=== PATIENT | female | born 1980 | race Caucasian/White ===

== ENCOUNTER 2017-05-16 17:56 | Emergency (ER) | payer SELFPAY ==
[2017-05-16 18:36] VITALS: BP 128/68
--- NOTE | 2017-05-16 18:44 | UC ---
Throat Pain/Nasal Fermin HPI - HPI Summary HPI Summary: SORE THROAT X 1 DAY NO FEVER, + CHILLS, NO NASAL CONGESTION , NO COUGH DID SALT WATER GARGLES ABOUT AN HR AGO WHICH MADE HER THROAT A LOT WORSE FEELS SWOLLEN, PT. HAS ALLERGIES TO IODINE NO SOB , NO COUGH - History of Current Complaint Chief Complaint: UCRespiratory Stated Complaint: SORE THROAT Time Seen by Provider: 05/16/17 18:31 Hx Obtained From: Patient Hx Last Menstrual Period: 05/10/17 Onset/Duration: Gradual Onset, Lasting Days - 1, Still Present Severity: Moderate Cough: None Associated Signs & Symptoms: Negative: Hoarseness, Nasal Discharge, Fever, Rash - Allergies/Home Medications Allergies/Adverse Reactions: Allergies Allergy/AdvReac Type Severity Reaction Status Date / Time Iodine Allergy Rash And Verified 07/17/13 15:54 Itching Shellfish Allergy Allergy Rash And Verified 05/16/17 18:36 Itching Sulfa Drugs Allergy Rash And Verified 07/17/13 15:54 Itching PMH/Surg Hx/FS Hx/Imm Hx Previously Healthy: Yes - Surgical History Surgical History: Yes Surgery Procedure, Year, and Place: c-sect, gallbladder - Family History Known Family History: Negative: Diabetes - Social History Alcohol Use: None Substance Use Type: None Smoking Status (MU): Never Smoked Tobacco Review of Systems Constitutional: Negative Skin: Negative Eyes: Negative ENT: Sore Throat Respiratory: Negative Cardiovascular: Negative Gastrointestinal: Negative Is Patient Immunocompromised?: No All Other Systems Reviewed And Are Negative: Yes Physical Exam Triage Information Reviewed: Yes Appearance: Well-Appearing, Well-Nourished, Pain Distress Vital Signs: Initial Vital Signs Temp 98 F 05/16/17 18:29 Pulse 95 05/16/17 18:29 Resp 18 05/16/17 18:29 BP 128/68 05/16/17 18:29 Pulse Ox 98 05/16/17 18:29 Vital Signs Reviewed: Yes Eye Exam: Normal Eyes: Positive: Conjunctiva Clear ENT: Positive: Normal ENT inspection, Hearing grossly normal, Pharyngeal erythema Neck exam: Normal Neck: Positive: Supple, Nontender, No Lymphadenopathy Respiratory: Positive: Chest non-tender, Lungs clear, Normal breath sounds, No respiratory distress Cardiovascular: Positive: RRR, No Murmur, Pulses Normal Abdominal Exam: Normal Skin Exam: Normal Throat Pain/Nasal Course/Dx - Differential Dx/Diagnosis Provider Diagnoses: PHARYNGITIS Discharge - Discharge Plan Condition: Stable Disposition: HOME Prescriptions: Amoxicillin PO (*) [Amoxicillin 875 MG (*)] 875 mg PO BID #20 tab predniSONE TAB* [Deltasone TAB*] 20 mg PO DAILY #5 tab Patient Education Materials: Pharyngitis (ED) Referrals: Cody Garrido MD [Primary Care Provider] - 5 Days
== END 2017-05-16 18:50 | disposition home or self-care (01) ==
LOC: UCCORT 17:56
DX: J02.9 Acute pharyngitis, unspecified (principal); Z88.2 Allergy status to sulfonamides
CPT/HCPCS: 99202; G0463

== ENCOUNTER 2019-05-08 14:54 | Emergency (ER) | payer SELFPAY ==
--- NOTE | 2019-05-08 15:00 | UC ---
FLU HPI - HPI Summary HPI Summary: 39 yo female presents with flu-like symptoms. She tells me that for the last 4 days she has had sinus congestion, dry cough, fatigue, body aches, and feeling feverish. She has been taking ibuprofen and dayquill with little relief. She has a decreased appetite. She is still smoking. She denies rash, SOB, chest pain , abdominal pain, vomiting, diarrhea, dysuria. - History of Current Complaint Stated Complaint: CONGESTION,FEVER,BODY ACHE Time Seen by Provider: 05/08/19 15:00 Hx Obtained From: Patient Hx Last Menstrual Period: 05/10/17 Onset/Duration: Sudden Onset Severity Currently: Moderate Severity Initially: Moderate Pain Intensity: 7 Pain Scale Used: 0-10 Numeric - Allergy/Home Medications Allergies/Adverse Reactions: Allergies Allergy/AdvReac Type Severity Reaction Status Date / Time Iodine and Iodide Containing Allergy Severe Anaphylatic Verified 05/08/19 15:17 Produc Shock shellfish derived Allergy Severe Anaphylatic Verified 05/08/19 15:17 Shock Sulfa (Sulfonamide Allergy Unknown Rash And Verified 05/08/19 15:17 Antibiotics) Itching Home Medications: Home Medications Acetaminophen [Acetaminophen Extra Strength] 1,000 mg PO PRN 05/08/19 [History] Ibuprofen TAB* [Advil TAB*] 1,000 mg PO Q6H PRN 05/08/19 [History Confirmed ] PMH/Surg Hx/FS Hx/Imm Hx - Additional Past Medical History Additional PMH: None - Surgical History Surgical History: Yes Surgery Procedure, Year, and Place: c-sect, gallbladder - Family History Known Family History: Negative: Diabetes - Social History Occupation: Employed Full-time Lives: With Family Alcohol Use: None Substance Use Type: None Smoking Status (MU): Never Smoked Tobacco Review of Systems All Other Systems Reviewed And Are Negative: No Constitutional: Positive: Fever, Fatigue, Other - Body aches Skin: Positive: Negative Eyes: Positive: Negative ENT: Positive: Sinus Congestion, Sinus Pain/Tenderness Respiratory: Positive: Cough Cardiovascular: Positive: Negative Gastrointestinal: Positive: Negative Genitourinary: Positive: Negative Neurovascular: Positive: Negative Neurological: Positive: Negative Psychological: Positive: Negative Physical Exam - Summary Physical Exam Summary: GENERAL: NAD. WDWN. No pain distress. SKIN: No rashes, sores, lesions, or open wounds. HEENT: Head: AT/NC Eyes: Conjunctiva clear without inflammation or discharge. Ears: Hearing grossly normal. TMs intact, no bulging, erythema, or edema. Nose: Nasal mucosa pink and moist. NTTP maxillary and frontal sinus. Throat: Posterior oropharynx without exudates, erythema, or tonsillar enlargement. Uvula midline. NECK: Supple. Nontender. No lymphadenopathy. CHEST: Mild wheezing throughout. No r/r. No accessory muscle use. Breathing comfortably and in no distress. CV: RRR. Pulses intact. Cap refill <2seconds NEURO: Alert. PSYCH: Age appropriate behavior. Triage Information Reviewed: Yes Vital Signs: Vital Signs: Temp Pulse Resp BP Pulse Ox 98.5 F 79 15 100/66 99 05/08/19 15:20 05/08/19 15:20 05/08/19 15:20 05/08/19 15:20 05/08/19 15:20 Laboratory Tests 05/08/19 05/08/19 15:24 15:25 Influenza A (Rapid) Negative Influenza B (Rapid) Negative Group A Strep Rapid Negative Vital Signs Reviewed: Yes Diagnostics - Radiology CXR Radiology Interpretation Completed By: Radiologist Summary of Radiographic Findings: IMPRESSION: No acute cardiopulmonary process by radiograph. Flu Course/Dx - Course Course Of Treatment: POC strep and flu negative. CXR as above. In the clinic pt was given a duoneb treatment with good improvement of her cough and wheezing. Suspect bronchitis. Discussed viral vs bacterial causes with the pt and she prefers to be on anbx at this time. - Differential Dx/Diagnosis Provider Diagnosis: Bronchitis Discharge ED - Sign-Out/Discharge Documenting (check all that apply): Patient Departure All imaging exams completed and their final reports reviewed: Yes - Discharge Plan Condition: Stable Disposition: HOME Prescriptions: Azithromycin TAB* [Zithromax TAB (Z-LYNDSAY) 250 mg #6 tabs] 2 tab PO .TODAY, THEN 1 DAILY #1 lyndsay Benzonatate CAP* [Tessalon 100 MG CAP*] 100 mg PO TID PRN #21 cap PRN Reason: Cough predniSONE TAB* [Deltasone 20 MG TAB*] 40 mg PO DAILY #10 tab Patient Education Materials: Acute Bronchitis (ED) Forms: *Work Release Referrals: No Primary Care Phys,NOPCP [Primary Care Provider] - Additional Instructions: If you develop a fever, shortness of breath, chest pain, new or worsening symptoms - please call your PCP or go to the ED immediately. - Billing Disposition and Condition Condition: STABLE Disposition: Home
[2019-05-08] MEDS ORDERED: Albuterol/Ipratropium NEB.SOL* Albuterol 2.5 MG/Ipratropium 0.5 MG 3 ML INH ONE (15:12)
[2019-05-08 15:25] VITALS: BP 100/66
[2019-05-08 15:37] LABS: Influenza A Molecular NEGATIVE (Negative); Influenza B Molecular NEGATIVE (Negative)
== END 2019-05-08 16:20 | disposition home or self-care (01) ==
LOC: UCCORT 14:54
DX: J40 Bronchitis, not specified as acute or chronic (principal); R09.81 Nasal congestion; R06.2 Wheezing; Z88.2 Allergy status to sulfonamides; Z88.8 Allergy status to other drugs, medicaments and biological substances; Z91.013 Allergy to seafood
CPT/HCPCS: 71046; 87651; 99212; A9270-GY; G0463